=== PATIENT | male | born 1935 | race Caucasian/White ===

== ENCOUNTER 2017-05-26 20:15 | Inpatient (IN) | payer OTHER, MEDICARE ==
[2017-05-26 21:37] VITALS: BP 200/93; PULSE 73; RESP 17; O2SAT 96
[2017-05-26 21:53] LABS: AUTOMATED NEUTROPHIL # 5.4 TH/MM3 (1.8-7.7); BASOPHIL # 0.1 TH/MM3 (0-0.2); BASOPHIL % 1.4 % (0.0-2.0); EOSINOPHIL # 0.3 TH/MM3 (0-0.4); EOSINOPHIL % 3.7 % (0.0-4.0); HEMATOCRIT 48.7 % (39.0-51.0); HEMO FLAGS DIFF FINAL; LYMPH % 14.5 % (9.0-44.0); LYMPHOCYTE # 1.1 TH/MM3 (1.0-4.8); MEAN CELL VOLUME 96.5 FL (80.0-100.0); MEAN CORPUSCULAR HEMOGLOBIN 32.4 PG (27.0-34.0); MEAN CORPUSCULAR HGB CONC 33.6 % (32.0-36.0); MONO % 11.4 % (0.0-8.0); PLATELET COUNT 159 TH/MM3 (150-450); RED BLOOD COUNT 5.05 MIL/MM3 (4.50-5.90); RED CELL DISTRIBUTION WIDTH 14.2 % (11.6-17.2); WHITE BLOOD COUNT 7.8 TH/MM3 (4.0-11.0)
[2017-05-26 21:57] LABS: BLOOD, URINE TRACE (NEG); COMMENT (UR) CULT NOT INDICATED; CULTURE IF INDICATED CULT NOT INDICATED; GLUCOSE,URINE NEG (NEG); KETONE, URINE TRACE mg/dL (NEG); MUCUS URINE FEW /lpf (OCC); NITRITE,URINE NEG (NEG); PH, URINE 6.5 (5.0-8.5); SQUAMOUS EPITHELIAL CELL URINE <1 /hpf (0-5); URINE COLOR YELLOW (YELLW/STRAW)
[2017-05-26 21:59] VITALS: BP 203/104; PULSE 75; RESP 17; TEMP 98.3; O2SAT 96
[2017-05-26] MEDS ORDERED: OMEGCAP PO (22:05)
[2017-05-26] MEDS ORDERED: ISOS30TA3 PO (22:05)
[2017-05-26] MEDS ORDERED: GABA300C5 PO ×2 (22:05→22:12)
[2017-05-26] MEDS ORDERED: SIMV40TA PO (22:05)
[2017-05-26] MEDS ORDERED: ASPI-516 CHEW (22:05)
[2017-05-26] MEDS ORDERED: MELO15TA20 PO (22:05)
[2017-05-26] MEDS ORDERED: OMEP40CA2 PO (22:05)
[2017-05-26] MEDS ORDERED: FLUT55AE INH (22:05)
[2017-05-26] MEDS ORDERED: LISI20TA PO (22:05)
[2017-05-26] MEDS ORDERED: CLAR10CA3 PO (22:05)
[2017-05-26] MEDS ORDERED: DONE10TA7 PO (22:05)
[2017-05-26] MEDS ORDERED: CARV6.252 PO (22:05)
[2017-05-26 22:14] LABS: ALT (GPT) 63 U/L (12-78)
[2017-05-26 22:17] LABS: ANION GAP 5 MEQ/L (5-15); AST (GOT) 45 U/L (15-37); BLOOD UREA NITROGEN 36 MG/DL (7-18); CHLORIDE 101 MEQ/L (98-107); GLOMERULAR FILTRATION RATE 43 ML/MIN (>89); POTASSIUM 3.9 MEQ/L (3.5-5.1); SODIUM (NA) 135 MEQ/L (136-145)
[2017-05-26 22:18] LABS: ALCOHOL LESS THAN 3 MG/DL (0-5)
--- NOTE | 2017-05-26 22:18 | PD ---
HPI Chief Complaint: Psychiatric Symptoms Time Seen by Provider: 20:36 Travel History International Travel<30 days: No Contact w/Intl Traveler<30days: No History of Present Illness HPI 82 yo M arrives as a bella act. pt has hx dementia. pt has become increasingly verbally and physically aggressive toward at home. aricept prescribed by pmd has not helped. pt has no medical complaints at the time of er arrival. location neuropsych. timing constant. severity moderate. PFSH Past Medical History High Cholesterol: Yes Coronary Artery Disease: Yes Dementia: Yes Diabetes: No Patient Takes Glucophage: No Diminished Hearing: Yes Hypertension: Yes Myocardial Infarction: Yes Tetanus Vaccination: Unknown Past Surgical History Cardiac Surgery: Yes (TRIPLE BYPASS) Coronary Artery Bypass Graft: Yes Family History Family Myocardial Infarction: Yes Social History Alcohol Use: No Tobacco Use: No Substance Use: No Allergies-Medications (Allergen,Severity, Reaction): Coded Allergies: No Known Allergies (Unverified , 05/26/17) Reported Meds & Prescriptions Reported Meds & Active Scripts Active Reported Gabapentin 300 Mg Cap 300 Mg PO TID Lisinopril-Hctz 20-12.5 mg Tab (Lisinopril/Hydrochlorothiazide) 20 Mg-12.5 Mg Tablet PO DAILY [place]-3 Fish Oil/Vitamin (Fish Oil-Cholecalciferol) 1,000-1,000 Mg Cap 1 Cap PO DAILY Simvastatin 40 Mg Tab 40 Mg PO HS [place] Respiclick Inh (Fluticasone Propionate) 55 Mcg/Actuation Aer.pow.ba 50 Mcg INH BID Carvedilol 6.25 Mg Tab 6.25 Mg PO BID Omeprazole 40 Mg Cap 40 Mg PO DAILY Claritin (Loratadine) 10 Mg Cap 10 Mg PO DAILY Meloxicam 15 Mg Tab 15 Mg PO DAILY Isosorbide Mononitrate ER (Isosorbide Mononitrate) 30 Mg Thiago 30 Mg PO DAILY Donepezil 10 Mg Tab 10 Mg PO HS Aspirin 81 Mg Chew 81 Mg CHEW DAILY Review of Systems Except as stated in HPI: all other systems reviewed are Neg General / Constitutional: No: Fever Physical Exam Narrative GENERAL: 82 yo male, speaking sentences, no acute distress SKIN: Warm and dry. HEAD: Atraumatic. Normocephalic. EYES: Pupils equal and round. No scleral icterus. No injection or drainage. ENT: No nasal bleeding or discharge. Mucous membranes pink and moist. NECK: Trachea midline. No JVD. CARDIOVASCULAR: Regular rate and rhythm. RESPIRATORY: No accessory muscle use. Clear to auscultation. Breath sounds equal bilaterally. GASTROINTESTINAL: Abdomen soft, non-tender, nondistended. Hepatic and splenic margins not palpable. MUSCULOSKELETAL: Extremities without clubbing, cyanosis, or edema. No obvious deformities. NEUROLOGICAL: Speech, memory and mentation are normal. Pt ambulatory with normal gait. No focal CN deficit. PSYCHIATRIC: Appropriate mood and affect; insight and judgment normal. Data Data Last Documented VS Vital Signs Date Time Temp Pulse Resp B/P (MAP) Pulse Ox O2 Delivery O2 Flow Rate FiO2 05/26/17 23:58 74 194/93 05/26/17 23:56 19 95 Room Air 05/26/17 21:59 98.3 Orders Orders Complete Blood Count With Diff (05/26/17 21:10) Comprehensive Metabolic Panel (05/26/17 21:10) Thyroid Stimulating Hormone (05/26/17 21:10) Urinalysis - C+S If Indicated (05/26/17 21:10) Psych Screen (05/26/17 21:10) Drug Screen, Random Urine (05/26/17 21:10) Alcohol (Ethanol) (05/26/17 21:10) Electrocardiogram (05/26/17 22:22) Ckmb (Isoenzyme) Profile (05/26/17 22:22) Prothrombin Time / Inr (Pt) (05/26/17 22:22) Act Partial Throm Time (Ptt) (05/26/17 22:22) Troponin I (05/26/17 22:22) Chest, Single Ap (05/26/17 22:22) ^ Medication Alert (05/26/17 23:02) ^ Discontinue (05/26/17 23:02) Dextrose 5% In [place]ate... W/Amiodarone Inj (05/26/17 23:12) Vital Signs (Adult) KENZIE.Q4H (05/26/17 23:02) CKMB (05/26/17 21:15) CKMB% (05/26/17 21:15) Consult Cardiology (05/26/17 ) Admit To Inpatient (05/26/17 ) Vital Signs (Adult) Q4H (05/26/17 23:57) Activity Oob With Assistance (05/26/17 23:57) Commercial Real Estate Assistant / Telemetry .CONTINUOUS (05/26/17 23:57) Intake + Output KENZIE.QSHIFT (05/26/17 23:57) Sodium Chlor 0.9% 1000 Ml Inj (Ns 1000 M (05/26/17 23:57) Sodium Chloride 0.9% Flush (Ns Flush) (05/27/17 00:00) Sodium Chloride 0.9% Flush (Ns Flush) (05/27/17 09:00) Ondansetron Inj (Zofran Inj) (05/27/17 00:00) Comprehensive Metabolic Panel (05/27/17 10:00) Complete Blood Count With Diff (05/27/17 10:00) Troponin I (05/27/17 04:00) Troponin I (05/27/17 10:00) Scd Bilateral/Knee High KENZIE.BID (05/26/17 23:57) Maverick Bilateral/Knee High KENZIE.QSHIFT (05/26/17 23:59) Acetaminophen (Tylenol) (05/27/17 00:00) Docusate Sodium-Senna (Edith-Colace) (05/27/17 09:00) Magnesium Hydroxide Liq (Milk Of Magnesi (05/27/17 00:00) Sennosides (Senokot) (05/27/17 00:00) Bisacodyl Supp (Dulcolax Supp) (05/27/17 00:00) Lactulose Liq (Lactulose Liq) (05/27/17 00:00) Inpatient Certification (05/26/17 ) Consult Psychiatry (05/26/17 ) (Hub Use Only)In Phy Cons/Ref (05/27/17 ) [facility]05/[facility]/17 ) Admit Order (Ed Use Only) (05/27/17 ) Commercial Real [employer] Assistant / Telemetry KENZIE.Q8H (05/27/17 00:08) Vital Signs (Adult) Q4H (05/27/17 00:08) Diet Heart Healthy (05/27/17 Breakfast) Activity Oob With Assistance (05/27/17 00:08) Labs Laboratory Tests Test 05/26/17 21:15 05/26/17 21:20 05/26/17 21:26 05/26/17 22:30 White Blood Count 7.8 TH/MM3 Red Blood Count 5.05 MIL/MM3 Hemoglobin 16.4 GM/DL Hematocrit 48.7 % Mean Corpuscular Volume 96.5 FL Mean Corpuscular Hemoglobin 32.4 PG Mean Corpuscular Hemoglobin Concent 33.6 % Red Cell Distribution Width 14.2 % Platelet Count 159 TH/MM3 Mean Platelet Volume 9.7 FL Neutrophils (%) (Auto) 69.0 % Lymphocytes (%) (Auto) 14.5 % Monocytes (%) (Auto) 11.4 % Eosinophils (%) (Auto) 3.7 % Basophils (%) (Auto) 1.4 % Neutrophils # (Auto) 5.4 TH/MM3 Lymphocytes # (Auto) 1.1 TH/MM3 Monocytes # (Auto) 0.9 TH/MM3 Eosinophils # (Auto) 0.3 TH/MM3 Basophils # (Auto) 0.1 TH/MM3 CBC Comment DIFF FINAL Differential Comment Blood Urea Nitrogen 36 MG/DL Creatinine 1.57 MG/DL Random Glucose 91 MG/DL Total Protein 8.5 GM/DL Albumin 3.8 GM/DL Calcium Level 9.1 MG/DL Alkaline Phosphatase 81 U/L Aspartate Amino Transf (AST/SGOT) 45 U/L Alanine Aminotransferase (ALT/SGPT) 63 U/L Total Bilirubin 0.7 MG/DL Sodium Level 135 MEQ/L Potassium Level 3.9 MEQ/L Chloride Level 101 MEQ/L Carbon Dioxide Level 29.0 MEQ/L Anion Gap 5 MEQ/L Estimat Glomerular Filtration Rate 43 ML/MIN Total Creatine Kinase 256 U/L Creatine Kinase MB 5.0 NG/ML Troponin I LESS THAN 0.02 NG/ML Thyroid Stimulating Hormone 3rd Gen 2.310 uIU/ML Ethyl Alcohol Level LESS THAN 3 MG/DL Urine Opiates Screen NEG Urine Barbiturates Screen NEG Urine Amphetamines Screen NEG Urine Benzodiazepines Screen NEG Urine Cocaine Screen NEG Urine Cannabinoids Screen NEG Urine Color YELLOW Urine Turbidity CLEAR Urine pH 6.5 Urine Specific [place] 1.025 Urine Protein 100 mg/dL Urine Glucose (UA) NEG mg/dL Urine Ketones TRACE mg/dL Urine Occult Blood TRACE Urine Nitrite NEG Urine Bilirubin NEG Urine Urobilinogen LESS THAN 2.0 MG/DL Urine Leukocyte Esterase NEG Urine RBC LESS THAN 1 /hpf Urine Squamous Epithelial Cells <1 /hpf Urine Mucus FEW /lpf Microscopic Urinalysis Comment CULT NOT INDICATED Prothrombin Time 11.7 SEC Prothromb Time International Ratio 1.1 RATIO Activated Partial Thromboplast Time 32.0 SEC MDM Medical Decision Making Medical Screen Exam Complete: Yes Emergency Medical Condition: Yes Medical Record Reviewed: Yes Differential Diagnosis Altered mental status/psychosis due to infection/environmental exposure/ metabolic abnormality, polypharmacy, alcohol abuse/intoxication, illicit or prescribed drug abuse, malingering/secondary gain, non-organic psychiatric disease Narrative Course At approximately 2220 the patient returned from using the bathroom to urinate and upon reconnecting the monitor he had a run of ventricular tachycardia about 11 beats in a row. He didn't describe chest pain at the time. EKG performed reveals sinus rhythm of 74 with a intraventricular conduction delay and the parents concerning for potential left bundle branch block. CBC & BMP Diagram 05/26/17 21:15 Total Protein 8.5 H, Albumin 3.8, Calcium Level 9.1, Alkaline Phosphatase 81, Aspartate Amino Transf (AST/SGOT) 45 H, Alanine Aminotransferase (ALT/SGPT) 63, Total Bilirubin 0.7 CXR: Bibasilar disease No cough. No fever. PNA considered less likely. Amio gtt started d/w Dr Waite for [facility] CICU placement Critical Care Narrative Aggregate critical care time was 35 minutes. Time to perform other separately billable procedures was not included in the critical care time. My time did not include minutes spent treating any other patients simultaneously or on activities that did not directly contribute to the patient's treatment. The services I provided to this patient were to treat and/or prevent clinically significant deterioration that could result in: Cardiopulmonary arrest, permanent disability I provided critical care services requiring my management, as noted below: Chart data review, documentation time, medication orders and management, vital sign assessments/reviewing monitor data, ordering and reviewing lab tests, ordering and interpreting/reviewing x-rays and diagnostic studies, care of the patient and discussion of the patient with the admitting physicians. Diagnosis Primary Impression: V tach Additional Impression: Dementia with aggressive behavior Admitting Information Admitting Physician Requests: James Cotto MD May 26, 2017 22:18
[2017-05-26 22:24] LABS: ALKALINE PHOSPHATASE 81 U/L (45-117); TOTAL BILIRUBIN ADULT 0.7 MG/DL (0.2-1.0)
[2017-05-26 22:40] VITALS: BP 194/91; PULSE 68; RESP 19; O2SAT 95
[2017-05-26 22:47] VITALS: BP 191/92; PULSE 66; RESP 19; O2SAT 95
--- NOTE | 2017-05-26 22:47 | RADRPT ---
EXAM DATE/TIME: 05/26/2017 22:30 [place] COMPARISON: No previous studies available for comparison. INDICATIONS : Shortness of breath. Psych eval. MEDICAL HISTORY : None. SURGICAL HISTORY : CABG. ENCOUNTER: Initial ACUITY: 1 day PAIN SCORE: 0/10 LOCATION: Bilateral chest FINDINGS: A single view of the chest demonstrates mild basilar airspace disease. Probable trace pleural fluid. Heart size within normal limits. CONCLUSION: 1. Mild basilar airspace disease with trace pleural fluid. Evan Still MD on May 26, 2017 at 22:40 Board Certified Radiologist. This report was verified electronically.
[2017-05-26 23:06] LABS: INTERNATIONAL NORMALIZED RATIO 1.1 RATIO; PROTHROMBIN TIME - PATIENT 11.7 SEC (9.8-11.6)
[2017-05-26 23:18] LABS: CREATINE KINASE 256 U/L (39-308)
[2017-05-26 23:31] VITALS: BP 187/98; PULSE 74; RESP 19; O2SAT 96
[2017-05-26 23:56] VITALS: BP 194/93; PULSE 75; RESP 19; O2SAT 95
--- NOTE | 2017-05-26 23:57 | HHI.HP ---
HPI Service [facility] Primary Care Physician Unknown Admission Diagnosis Diagnoses: (1) V tach Diagnosis: Principal (2) Dementia with aggressive behavior Diagnosis: Principal (3) Renal insufficiency Diagnosis: Principal (4) HTN (hypertension) Diagnosis: Principal Travel History International Travel<30 Days: No Contact w/Intl Traveler <30 Da: No History of Present Illness This is an 82-year-old male with PMH of HTN, Hyperlipidemia, CAD and Dementia was brought to the ER by Police under Veneg[place] Act being physically aggressive towards . Per , pt w/ worsening mental state in the last 3wks, tonight became aggressive. On arrival, BP 203/104, HR 75, O2 sat 96% on RA, Afebrile. CBC essentially unremarkable. Creatinine 1.57, no previous labs for comparison. Troponin negative. UA negative. Urine Drug Screen negative. Alcohol negative. CXR mild basilar airspace disease and trace pleural fluid. While in ER, patient noted to have an 11 beat run of V. tach, started on Amiodarone gtt. Pt currently without complaints. No chest pain, no SOB. Review of Systems Except as stated in HPI: all other systems reviewed are Neg ROS: 14 point review of systems otherwise negative. Past Family Social History Past Medical History PMH: HTN, Hyperlipidemia, CAD and Dementia Past Surgical History PAST SURGICAL HISTORY: CABG Allergies: Coded Allergies: No Known Allergies (Unverified , 05/26/17) Family History PAST FAMILY HISTORY: Reviewed, positive for CAD. Social History PAST SOCIAL HISTORY: Negative for alcohol, tobacco or drugs. Physical Exam Vital Signs Vital Signs Date Time Temp Pulse Resp B/P (MAP) Pulse Ox O2 Delivery O2 Flow Rate FiO2 05/26/17 23:56 75 19 194/93 (126) 95 Room Air 05/26/17 23:31 74 19 187/98 (127) 96 Room Air 05/26/17 22:47 66 19 191/92 (125) 95 Room Air 05/26/17 22:40 68 19 194/91 (125) 95 Room Air 05/26/17 21:59 98.3 75 17 203/104 (137) 96 Room Air 05/26/17 21:37 73 17 200/93 (128) 96 Room Air Physical Exam PE: GENERAL: Pleasantly demented elderly white male in no acute distress, calm at this time. HEENT: PERRLA, EOMI. No scleral icterus or conjunctival pallor. No lid lag or facial droop. CARDIOVASCULAR: Regular rate and rhythm. No obvious murmurs to auscultation. No chest tenderness to palpation. RESPIRATORY: No obvious rhonchi or wheezing. Clear to auscultation. Breath sounds equal bilaterally. GASTROINTESTINAL: Abdomen soft, non-tender, nondistended. BS normal. MUSCULOSKELETAL: Extremities without clubbing, cyanosis, or edema. No obvious deformities. NEUROLOGICAL: Awake, alert. No focal neurologic deficits. Moving both upper and lower extremities spontaneously. Laboratory Laboratory Tests Test 05/26/17 21:15 05/26/17 21:20 05/26/17 21:26 05/26/17 22:30 White Blood Count 7.8 Red Blood Count 5.05 Hemoglobin 16.4 Hematocrit 48.7 Mean Corpuscular Volume 96.5 Mean Corpuscular Hemoglobin 32.4 Mean Corpuscular Hemoglobin Concent 33.6 Red Cell Distribution Width 14.2 Platelet Count 159 Mean Platelet Volume 9.7 Neutrophils (%) (Auto) 69.0 Lymphocytes (%) (Auto) 14.5 Monocytes (%) (Auto) 11.4 Eosinophils (%) (Auto) 3.7 Basophils (%) (Auto) 1.4 Neutrophils # (Auto) 5.4 Lymphocytes # (Auto) 1.1 Monocytes # (Auto) 0.9 Eosinophils # (Auto) 0.3 Basophils # (Auto) 0.1 CBC Comment DIFF FINAL Differential Comment Blood Urea Nitrogen 36 Creatinine 1.57 Random Glucose 91 Total Protein 8.5 Albumin 3.8 Calcium Level 9.1 Alkaline Phosphatase 81 Aspartate Amino Transf (AST/SGOT) 45 Alanine Aminotransferase (ALT/SGPT) 63 Total Bilirubin 0.7 Sodium Level 135 Potassium Level 3.9 Chloride Level 101 Carbon Dioxide Level 29.0 Anion Gap 5 Estimat Glomerular Filtration Rate 43 Total Creatine Kinase 256 Creatine Kinase MB 5.0 Troponin I LESS THAN 0.02 Thyroid Stimulating Hormone 3rd Gen 2.310 Ethyl Alcohol Level LESS THAN 3 Urine Opiates Screen NEG Urine Barbiturates Screen NEG Urine Amphetamines Screen NEG Urine Benzodiazepines Screen NEG Urine Cocaine Screen NEG Urine Cannabinoids Screen NEG Urine Color YELLOW Urine Turbidity CLEAR Urine pH 6.5 Urine Specific [place] 1.025 Urine Protein 100 Urine Glucose (UA) NEG Urine Ketones TRACE Urine Occult Blood TRACE Urine Nitrite NEG Urine Bilirubin NEG Urine Urobilinogen LESS THAN 2.0 Urine Leukocyte Esterase NEG Urine RBC LESS THAN 1 Urine Squamous Epithelial Cells <1 Urine Mucus FEW Microscopic Urinalysis Comment CULT NOT INDICATED Prothrombin Time 11.7 Prothromb Time International Ratio 1.1 Activated Partial Thromboplast Time 32.0 Result Diagram: 05/26/17211405/26/172114 Caprini VTE Risk Assessment Caprini VTE Risk Assessment: Mod/High Risk (score >= 2) Caprini Risk Assessment Model Point Value = 1 Point Value = 2 Point Value = 3 Point Value = 5 Age 41-60 Minor surgery BMI > 25 kg/m2 Swollen legs Varicose veins or History of unexplained or recurrent spontaneous Oral contraceptives or hormone replacement Sepsis (< 1 month) Serious lung disease, including pneumonia (< 1 month) Abnormal pulmonary function Acute myocardial infarction Congestive heart failure (< 1 month) History of inflammatory bowel disease Medical patient at bed rest Age 61-74 Arthroscopic surgery Major open surgery (> 45 min) Laparoscopic surgery (> 45 min) Malignancy Confined to bed (> 72 hours) Immobilizing plaster cast Central venous access Age >= 75 History of VTE Family history of VTE Factor V Leiden Prothrombin [id number] Lupus anticoagulant Anticardiolipin antibodies Elevated serum homocysteine Heparin-induced thrombocytopenia Other congenital or acquired thrombophilia Stroke (< 1 month) Elective arthroplasty Hip, pelvis, or leg fracture Acute spinal cord injury (< 1 month) Prophylaxis Regimen Total Risk Factor Score Risk Level Prophylaxis Regimen 0-1 Low Early ambulation 2 Moderate Order ONE of the following: *Sequential Compression Device (SCD) *Heparin 5000 units SQ BID 3-4 Higher Order ONE of the following medications: *Heparin 5000 units SQ TID *Enoxaparin/Lovenox 40 mg SQ daily (WT < 150 kg, CrCl > 30 mL/min) *Enoxaparin/Lovenox 30 mg SQ daily (WT < 150 kg, CrCl > 10-29 mL/min) *Enoxaparin/Lovenox 30 mg SQ BID (WT < 150 kg, CrCl > 30 mL/min) AND/OR *Sequential Compression Device (SCD) 5 or more Highest Order ONE of the following medications: *Heparin 5000 units SQ TID (Preferred with Epidurals) *Enoxaparin/Lovenox 40 mg SQ daily (WT < 150 kg, CrCl > 30 mL/min) *Enoxaparin/Lovenox 30 mg SQ daily (WT < 150 kg, CrCl > 10-29 mL/min) *Enoxaparin/Lovenox 30 mg SQ BID (WT < 150 kg, CrCl > 30 mL/min) AND *Sequential Compression Device (SCD) Assessment and Plan Problem List: (1) V tach ICD Code: I47.2 - Ventricular tachycardia Status: Acute (2) Dementia with aggressive behavior ICD Code: F03.91 - Unspecified dementia with behavioral disturbance Status: Acute (3) Renal insufficiency ICD Code: N28.9 - Disorder of kidney and ureter, unspecified (4) HTN (hypertension) ICD Code: I10 - Essential (primary) hypertension Assessment and Plan A/P: 1. Vtach: 11 beat run of Vtach in ER, asymptomatic. Started on Amiodarone gtt in ER, will continue. Chest pain free. Initial trop negative. Check serial cardiac enzymes, Echo, Consult Cardiology. 2. Dementia: w/ Aggressive Behavior, brought in by Police under Ven[place] Act for being physically aggressive to . Consult Psych. 3. Renal Insufficiency: Creatinine 1.57, no previous labs for comparison. IVF for hydration, repeat labs in am. 4. HTN: BP uncontrolled, 203/104, HR 75 on arrival, currently 194/93, HR 75. Continue Amio gtt, monitor BP. 5. DVT Prophylaxis: Heparin sq 6. Social work for d/c planning as needed. 7. Case discussed w/ ER physician at length. Physician Certification 2 Midnight Certification Type: Admission for Inpatient Services Order for Inpatient Services The services are ordered in accordance with Medicare regulations or non- Medicare payer requirements, as applicable. In the case of services not specified as inpatient-only, they are appropriately provided as inpatient services in accordance with the 2-midnight benchmark. Estimated LOS (days): 2 days is the estimated time the patient will need to remain in the hospital, assuming treatment plan goals are met and no additional complications. Post-Hospital Plan: Not yet determined Mikki Waite MD May 26, 2017 23:57
[2017-05-26] MEDS: AMIODARONE INJ 450 MG in DEXTROSE 5% IN WATE(EXCEL) INJ 241 ML IV PRN ×2 (23:58)
[2017-05-27] VITALS (35 sets, daily range): BP systolic 136–210; BP diastolic 71–104; PULSE 61–90; RESP 16–20; TEMP 97.9–98.1; O2SAT 93–96
[2017-05-27] MEDS ORDERED: SODIUM CHLORIDE 0.9% FLUSH 10 ML FLUSH IV FLUSH PRN
[2017-05-27] MEDS ORDERED: ONDANSETRON HCL 4 MG/2 ML VIAL IVP PRN
[2017-05-27] MEDS ORDERED: MAGNESIUM HYDROXIDE SUSP 30 ML CUP PO PRN
[2017-05-27] MEDS ORDERED: ACETAMINOPHEN 325 MG TAB PO PRN
[2017-05-27] MEDS ORDERED: LACTULOSE SYRUP 20 GM/30 ML CUP PO PRN
[2017-05-27] MEDS ORDERED: BISACODYL 10 MG SUPP RECTAL PRN
[2017-05-27] MEDS ORDERED: SENNOSIDES 8.6 MG TAB PO PRN
[2017-05-27] MEDS: SODIUM CHLOR 0.9% 1000 ML INJ 1,000 ML IV SCH ×3 (00:41→20:13)
[2017-05-27] MEDS ORDERED: hydrALAZINE HCL 20 MG/ML VIAL IV PUSH ONE (04:00)
[2017-05-27] MEDS ORDERED: METOPROLOL TARTRATE 25 MG TAB PO ONE (05:15)
[2017-05-27] MEDS: AMIODARONE INJ 450 MG in DEXTROSE 5% IN WATE(EXCEL) INJ 241 ML IV PRN ×2 (07:27)
--- NOTE | 2017-05-27 07:36 | HHI.PR ---
Subjective Remarks f/u; V-tach/ hypertension in no acute distress. denies sob or cough. has mild generalized body ache. BP tend noted. d/w the RN. Objective Vitals Vital Signs Date Time Temp Pulse Resp B/P (MAP) Pulse Ox O2 Delivery O2 Flow Rate FiO2 05/27/17 06:26 65 05/27/17 05:04 90 05/27/17 04:29 83 05/27/17 03:52 83 05/27/17 03:49 98.0 81 20 210/102 (138) 96 05/27/17 03:17 78 19 185/88 (120) 94 Room Air 05/27/17 03:15 81 19 204/104 (137) 94 Room Air 05/27/17 02:24 74 18 149/82 (104) 94 Room Air 05/27/17 02:14 69 17 153/84 (107) 94 Room Air 05/27/17 02:02 74 17 153/84 (107) 93 Room Air 05/27/17 01:22 69 17 160/84 (109) 95 Room Air 05/27/17 01:02 68 17 169/83 (111) 95 Room Air 05/27/17 00:59 68 17 180/91 (120) 95 Room Air 05/27/17 00:43 74 18 174/95 (121) 96 Room Air 05/27/17 00:10 70 18 180/95 (123) 96 Room Air 05/26/17 23:58 74 194/93 05/26/17 23:56 75 19 194/93 (126) 95 Room Air 05/26/17 23:31 74 19 187/98 (127) 96 Room Air 05/26/17 22:47 66 19 191/92 (125) 95 Room Air 05/26/17 22:40 68 19 194/91 (125) 95 Room Air 05/26/17 21:59 98.3 75 17 203/104 (137) 96 Room Air 05/26/17 21:37 73 17 200/93 (128) 96 Room Air Result Diagram: 05/26/17211405/26/172114 Objective Remarks GENERAL: This is a well-nourished, well-developed patient, in no apparent distress. CARDIOVASCULAR: Regular rate and regular rhythm without murmurs, gallops, or rubs. RESPIRATORY: Clear to auscultation. Breath sounds equal bilaterally. No wheezes , rales, or rhonchi. GASTROINTESTINAL: Abdomen soft, non-tender, nondistended. Normal, active bowel sounds MUSCULOSKELETAL: Extremities without clubbing, cyanosis, or edema. NEURO: Alert & Oriented x4 to person, place, time, situation. Moves all ext x4 Medications and IVs Current Medications Amiodarone HCl 450 mg/Dextrose 250 ml @ 33.33 mls/ hr Q7H31M PRN IV Per Protocol Last administered on 05/26/17 23:58; Start 05/26/17 at 23:12 Sodium Chloride 1,000 ml @ 100 mls/hr Q10H IV Last administered on 05/27/17 00:41; Start 05/26/17 at 23:57 Sodium Chloride (NS Flush) 2 ml UNSCH PRN IV FLUSH FLUSH AFTER USING IV ACCESS ; Start 05/27/17 at 00:00 Sodium Chloride (NS Flush) 2 ml BID IV FLUSH ; Start 05/27/17 at 09:00 Ondansetron HCl (Zofran Inj) 4 mg Q6H PRN IVP NAUSEA OR VOMITING; Start at 00:00 Acetaminophen (Tylenol) 650 mg Q6H PRN PO FEVER/PAIN SCALE 1 TO 2; Start 05/27 at 00:00 Senna/Docusate Sodium (Edith-Colace) 1 tab BID PO ; Start 05/27/17 at 09:00 Magnesium Hydroxide (Milk Of Magnesia Liq) 30 ml Q12H PRN PO Mild constipation ; Start 05/27/17 at 00:00 Sennosides (Senokot) 17.2 mg Q12H PRN PO Moderate constipation; Start at 00:00 Bisacodyl (Dulcolax Supp) 10 mg DAILY PRN RECTAL SEVERE CONSITIPATION; Start 05/27/17 at 00:00 Lactulose (Lactulose Liq) 30 ml DAILY PRN PO SEVERE CONSITIPATION; Start 05/27 at 00:00 Heparin Sodium (Porcine) (Heparin Inj) 5,000 units Q12HR SQ ; Start 05/27/17 at 09:00 Hydralazine HCl (Apresoline Inj) 10 mg ONCE ONCE IV PUSH Last administered on 05/27/17 04:03; Start 05/27/17 at 04:00; Stop 05/27/17 at 04:01; Status DC Metoprolol Tartrate (Lopressor) 25 mg ONCE ONCE PO Last administered on 05:26; Start 05/27/17 at 05:15; Stop 05/27/17 at 05:16; Status DC Aspirin (Aspirin Chew) 81 mg DAILY CHEW ; Start 05/27/17 at 09:00 Donepezil HCl (Aricept) 10 mg HS PO ; Start 05/27/17 at 21:00 Pantoprazole Sodium (Protonix) 40 mg DAILY PO ; Start 05/27/17 at 09:00 Pravastatin Sodium (Pravachol) 80 mg HS PO ; Start 05/27/17 at 21:00 A/P Problem List: (1) V tach ICD Code: I47.2 - Ventricular tachycardia Status: Acute (2) Dementia with aggressive behavior ICD Code: F03.91 - Unspecified dementia with behavioral disturbance Status: Acute (3) Renal insufficiency ICD Code: N28.9 - Disorder of kidney and ureter, unspecified (4) HTN (hypertension) ICD Code: I10 - Essential (primary) hypertension Assessment and Plan A/P 1. Vtach: 11 beat run of Vtach in ER, asymptomatic. Started on Amiodarone gtt in ER, will continue. resume Coreg- echo pending-cardiology consulted. 2. Dementia: w/ Aggressive Behavior, brought in by Police under Ven[place] Act for being physically aggressive to . Consulted Psych. 3. Renal Insufficiency: Creatinine 1.57, no previous labs for comparison. IVF for hydration, repeat labs today pending. 4. HTN: BP uncontrolled. Continue Amio gtt- resume Coreg-- vasotec prn- monitor BP. adjust the regimen as needed. 5. DVT Prophylaxis: Heparin sq Portillo Anguiano MD May 27, 2017 07:36
[2017-05-27] MEDS ORDERED: ENALAPRILAT 1.25 MG/ML VIAL IV PUSH PRN (07:45)
[2017-05-27] MEDS: ASPIRIN 81 MG CHEW TAB CHEW SCH (08:25)
[2017-05-27] MEDS: DOCUSATE SODIUM 50 MG/SENNA 8.6 MG TAB PO SCH ×2 (08:25→20:43)
[2017-05-27] MEDS: PANTOPRAZOLE SOD 40 MG DELAYED RELEASE TAB PO SCH (08:25)
[2017-05-27] MEDS: SODIUM CHLORIDE 0.9% FLUSH 10 ML FLUSH IV FLUSH SCH ×2 (08:26→20:45)
[2017-05-27] MEDS: HEPARIN SODIUM - SQ 10,000 UNITS/ML VIAL SQ SCH ×2 (08:26→20:43)
--- NOTE | 2017-05-27 08:33 | EKG ---
Date Performed: 05/26/2017 Time Performed: 22:28:07 PTAGE: 82 years EKG: Sinus rhythm WITH FIRST DEGREE AV BLOCK LEFT ATRIAL ENLARGEMENT LEFT BUNDLE BRANCH BLOCK ABNORMAL ECG NO PREVIOUS TRACING DOCTOR: Scooby Hewitt Interpretating Date/Time 05/27/2017 08:31:24
[2017-05-27] MEDS ORDERED: CARVEDILOL 6.25 MG TAB PO SCH (09:00)
--- NOTE | 2017-05-27 09:30 | PD.PSY.CON ---
Provisional Diagnosis Admission Date May 27, 2017 at 00:09 [place] I. Dementia with behavioral disturbance [place] II. Deferred [place] III. Hypertension, CAD, hyperlipidemia [place] IV. Aggressive behavior at home [place] V. 55 History of Present Illness Service Psychiatry Consult Requested By Medical team Reason for Consult Aggressive behavior Primary Care Physician Unknown HPI The patient is an 82-year-old man, domicile with his in [place], retired automotive electrician, , with documented psychiatric history of dementia, no previous psychiatric hospitalizations, no previous suicidal attempts, the patient is a Aricept 10 mg prescribed by PCP, patient has medical history of HTN , Hyperlipidemia, CAD, who was brought to the ER by Police under Venegas Act being physically aggressive towards his . Per , pt w/ worsening mental state in the last 3wks, but has became aggressive. On arrival in the ER, BP 203 /104, HR 75, O2 sat 96% on RA, Afebrile. CBC essentially unremarkable. Creatinine 1.57, no previous labs for comparison. Troponin negative. UA negative. Urine Drug Screen negative. Alcohol negative. CXR mild basilar airspace disease and trace pleural fluid. While in ER, patient noted to have an 11 beat run of V. tach, started on Amiodarone gtt. Pt currently without complaints. No chest pain, no SOB. He was consulted to psychiatry to adress aggressiveness and cognition impairment progression. On psychiatric evaluation today patient is found in his room, he is calm, cooperative, irritable at times. He is requesting breakfast "because I'm very hungry". Initially the patient was resistant and oppositional, stating that he is not crazy to see a psychiatrist. Patient was inquiring about the reason of being Venegas acted and consulted to psychiatry. He says that his is making false statements about him. He says that he is an aggressive person "because I am [place], and I have always been like that". Patient also states that he is a very smart automotive electrician "I am as smarter than any doctor here and you are not going to tel me what to do". He was receptive to verbal de-escalation and reassurance. Patient says that he was brought to the hospital "because I had a problem with my blood pressure". He does not seem to be insightful even aware of being under Venegas act are being aggressive with his . He reports frustrated mood , but he denies anhedonia, he denies hopelessness, helplessness, he denies sadness, denies any problem with appetite or concentration. He does report difficulty sleeping at night. He denies suicidal and homicidal ideation, he denies visual and auditory hallucinations. During this evaluation patient is mostly logical, coherent and relevant. No prominent paranoia, delusions, disorganized speech or behavior, delusions of reference, thought controlling are present. He does present evident memory deficits. Patient knows that he is in a hospital, but he doesn't know the name of the hospital or the city. Patient says that we are in [place] 2000. He doesn't know the name of the asbestos microscopist. Patient is able to repeat 3 words, but unable to recall them 5 minutes later. Even though the patient declined to continue the cooperation with cognitive assessment, there is no evidence of acute delirium, such of attention deficit, fluctuation of consciousness. During my assessment agitation or aggressive behavior were observed. I spoke with the nurse in charge who does not have any negative report about patient's behavior. I try to get collateral information from his , called her several times, but she did not fish bait picker the phone. The patient denies the use of illicit drugs and alcohol. Review of Systems Constitutional: DENIES: Diaphoretic episodes, Fatigue, Fever, Weight gain, Weight loss, Chills, Dizziness, Change in appetite, Night Sweats Endocrine: DENIES: Heat/cold intolerance, Polydipsia, Polyuria, Polyphagia Eyes: DENIES: Blurred vision, Diplopia, Eye inflammation, Eye pain, Vision loss , Photosensitivity, Double Vision Ears, nose, mouth, throat: DENIES: Tinnitus, Hearing loss, Vertigo, Nasal discharge, Oral lesions, Throat pain, Hoarseness, Ear Pain, Running Nose, Epistaxis, Sinus Pain, Toothache, Odynophagia Respiratory: DENIES: Apneas, Cough, Snoring, Wheezing, Hemoptysis, Sputum production, Shortness of breath Cardiovascular: DENIES: Chest pain, Palpitations, Syncope, Dyspnea on Exertion , PND, Lower Extremity Edema, Orthopnea, Claudication Gastrointestinal: DENIES: Abdominal pain, Black stools, Bloody stools, Constipation, Diarrhea, Nausea, Vomiting, Difficulty Swallowing, Anorexia Genitourinary: DENIES: Sexual dysfunction, Urinary frequency, Urinary incontinence, Urgency, Hematuria, Dysuria, Nocturia, Penile Discharge, Testicular Pain, Testicular Swelling Musculoskeletal: DENIES: Joint pain, Muscle aches, Stiffness, Joint Swelling, Back pain, Neck pain Integumentary: DENIES: Abnormal pigmentation, Nail changes, Pruritus, Rash Hematologic/lymphatic: DENIES: Bruising, Lymphadenopathy Immunologic/allergic: DENIES: Eczema, Urticaria Neurologic: DENIES: Abnormal gait, Headache, Localized weakness, Paresthesias, Seizures, Speech Problems, Tremor, Poor Balance Psychiatric: COMPLAINS OF: Confusion Past Family Social History Coded Allergies: No Known Allergies (Unverified , 05/26/17) Reported Medications Gabapentin (Gabapentin) 300 Mg Cap, 300 MG PO TID, #90 CAP 0 Refills 05/26/17 Lisinopril/Hydrochlorothiazide (Lisinopril-Hctz 20-12.5 mg Tab) 20 Mg-12.5 Mg Tablet, PO DAILY 05/26/17 Fish Oil-Cholecalciferol ([place]-3 Fish Oil/Vitamin) 1,000-1,000 Mg Cap, 1 CAP PO DAILY for Nutritional Supplement, CAP 0 Refills 05/26/17 Simvastatin (Simvastatin) 40 Mg Tab, 40 MG PO HS for Cholesterol Management, # 30 TAB 0 Refills 05/26/17 Fluticasone Propionate Inh ([place]onair Respiclick Inh) 55 Mcg/Actuation Aer.pow.ba , 50 MCG INH BID for Asthma Management, INH 0 Refills 05/26/17 Carvedilol (Carvedilol) 6.25 Mg Tab, 6.25 MG PO BID, #60 TAB 0 Refills 05/26/17 Omeprazole (Omeprazole) 40 Mg Cap, 40 MG PO DAILY, #30 CAP 0 Refills 05/26/17 Loratadine (Claritin) 10 Mg Cap, 10 MG PO DAILY for Allergy Management, CAP 0 Refills 05/26/17 Meloxicam (Meloxicam) 15 Mg Tab, 15 MG PO DAILY for Arthritis Pain, #30 TAB 0 Refills 05/26/17 Isosorbide Mononitrate ER (Isosorbide Mononitrate ER) 30 Mg Thiago, 30 MG PO DAILY for Prevent Chest Pain, #30 TAB 0 Refills 05/26/17 Donepezil (Donepezil) 10 Mg Tab, 10 MG PO HS for Dementia, #30 TAB 0 Refills 05/26/17 Aspirin (Aspirin) 81 Mg Chew, 81 MG CHEW DAILY, TAB 0 Refills 05/26/17 Discontinued Reported Medications Gabapentin (Gabapentin) 300 Mg Cap, 300 MG PO TID, #90 CAP 0 Refills 05/26/17 Current Medications Medications (Trade) Dose Ordered Sig/Nohelia Route Start Time Stop Time Status Last Admin Amiodarone HCl 450 mg/Dextrose 250 ml @ 33.33 mls/ hr Q7H31M PRN IV 05/26/17 23:12 05/27/17 07:27 Sodium Chloride 1,000 ml @ 100 mls/hr Q10H IV 05/26/17 23:57 05/27/17 00:41 (NS Flush) 2 ml UNSCH PRN IV FLUSH 05/27/17 00:00 (NS Flush) 2 ml BID IV FLUSH 05/27/17 09:00 05/27/17 08:26 (Zofran Inj) 4 mg Q6H PRN IVP 05/27/17 00:00 (Tylenol) 650 mg Q6H PRN PO 05/27/17 00:00 (Edith-Colace) 1 tab BID PO 05/27/17 09:00 05/27/17 08:25 (Milk Of Magnesia Liq) 30 ml Q12H PRN PO 05/27/17 00:00 (Senokot) 17.2 mg Q12H PRN PO 05/27/17 00:00 (Dulcolax Supp) 10 mg DAILY PRN RECTAL 05/27/17 00:00 (Lactulose Liq) 30 ml DAILY PRN PO 05/27/17 00:00 (Heparin Inj) 5,000 units Q12HR SQ 05/27/17 09:00 05/27/17 08:26 (Aspirin Chew) 81 mg DAILY CHEW 05/27/17 09:00 05/27/17 08:25 (Aricept) 10 mg HS PO 05/27/17 21:00 (Protonix) 40 mg DAILY PO 05/27/17 09:00 05/27/17 08:25 (Pravachol) 80 mg HS PO 05/27/17 21:00 (Vasotec Inj) 1.25 mg Q8H PRN IV PUSH 05/27/17 07:45 (Coreg) 6.25 mg BID PO 05/27/17 09:00 05/27/17 08:25 Family Psych History He denies family psychiatric history Social History Patient was born and raised in [place], he is domiciled in [place] with his , he is retired, he used to be an automotive electrician, his highest level of education is high school, he is also [place]. Patient's Strengths (min. 2) No previous psychiatric history Physical Exam No psychomotor agitation or retardation, no EPS, no tremors, no stiffness, no withdrawal symptoms present Vital Signs Vital Signs Date Time Temp Pulse Resp B/P (MAP) Pulse Ox O2 Delivery O2 Flow Rate FiO2 05/27/17 08:00 66 05/27/17 07:27 169/84 05/27/17 07:00 98.0 18 95 05/27/17 03:17 Room Air Lab Results Test 05/26/17 21:15 05/26/17 21:20 05/26/17 21:26 05/26/17 22:30 White Blood Count 7.8 TH/MM3 Red Blood Count 5.05 MIL/MM3 Hemoglobin 16.4 GM/DL Hematocrit 48.7 % Mean Corpuscular Volume 96.5 FL Mean Corpuscular Hemoglobin 32.4 PG Mean Corpuscular Hemoglobin Concent 33.6 % Red Cell Distribution Width 14.2 % Platelet Count 159 TH/MM3 Mean Platelet Volume 9.7 FL Neutrophils (%) (Auto) 69.0 % Lymphocytes (%) (Auto) 14.5 % Monocytes (%) (Auto) 11.4 % Eosinophils (%) (Auto) 3.7 % Basophils (%) (Auto) 1.4 % Neutrophils # (Auto) 5.4 TH/MM3 Lymphocytes # (Auto) 1.1 TH/MM3 Monocytes # (Auto) 0.9 TH/MM3 Eosinophils # (Auto) 0.3 TH/MM3 Basophils # (Auto) 0.1 TH/MM3 CBC Comment DIFF FINAL Differential Comment Blood Urea Nitrogen 36 MG/DL Creatinine 1.57 MG/DL Random Glucose 91 MG/DL Total Protein 8.5 GM/DL Albumin 3.8 GM/DL Calcium Level 9.1 MG/DL Alkaline Phosphatase 81 U/L Aspartate Amino Transf (AST/SGOT) 45 U/L Alanine Aminotransferase (ALT/SGPT) 63 U/L Total Bilirubin 0.7 MG/DL Sodium Level 135 MEQ/L Potassium Level 3.9 MEQ/L Chloride Level 101 MEQ/L Carbon Dioxide Level 29.0 MEQ/L Anion Gap 5 MEQ/L Estimat Glomerular Filtration Rate 43 ML/MIN Total Creatine Kinase 256 U/L Creatine Kinase MB 5.0 NG/ML Troponin I LESS THAN 0.02 NG/ML Thyroid Stimulating Hormone 3rd Gen 2.310 uIU/ML Ethyl Alcohol Level LESS THAN 3 MG/DL Urine Opiates Screen NEG Urine Barbiturates Screen NEG Urine Amphetamines Screen NEG Urine Benzodiazepines Screen NEG Urine Cocaine Screen NEG Urine Cannabinoids Screen NEG Urine Color YELLOW Urine Turbidity CLEAR Urine pH 6.5 Urine Specific [place] 1.025 Urine Protein 100 mg/dL Urine Glucose (UA) NEG mg/dL Urine Ketones TRACE mg/dL Urine Occult Blood TRACE Urine Nitrite NEG Urine Bilirubin NEG Urine Urobilinogen LESS THAN 2.0 MG/DL Urine Leukocyte Esterase NEG Urine RBC LESS THAN 1 /hpf Urine Squamous Epithelial Cells <1 /hpf Urine Mucus FEW /lpf Microscopic Urinalysis Comment CULT NOT INDICATED Prothrombin Time 11.7 SEC Prothromb Time International Ratio 1.1 RATIO Activated Partial Thromboplast Time 32.0 SEC Test 05/27/17 01:35 Troponin I LESS THAN 0.02 NG/ML Mental Status Examination Appearance: Appropriate Consciousness: Alert Orientation: Person, Place (partially) Motor Activity: Normal gait Speech: Unremarkable Language: Adequate Fund of Knowledge: Adequate Attention and Concentration: Adequate Memory: Impaired Mood: Appropriate, Oppositional, Irritable Affect: Irritable Thought Process & Associations: Intact Thought Content: Appropriate Hallucination Type: None Delusion Type: None Suicidal Ideation: No Suicidal Plan: No Suicidal Intention: No Homicidal Ideation: No Homicidal Plan: No Homicidal Intention: No Insight: Fair Judgment: Impulsive Assessment & Plan Problem List: (1) Dementia ICD Codes: F03.90 - Unspecified dementia without behavioral disturbance Assessment & Plan: On psychiatric evaluation today the patient at the beginning irritable, oppositional, stating that he doesn't need a psychiatrist, but receptive to reassurance and verbal de-escalation techniques. The patient denies symptomatology of depression, anxiety, tigist or psychosis. The patient denies suicidal and homicidal ideation, visual and auditory hallucinations at this moment. At the moment of my evaluation even though the patient seems to be verbally hostile, no agitation, no aggressive behavior are observed. As per nurse in charge the patient has been behaviorally is stable. No delirium, no prominent paranoia, no delusions, no disorganized behavior or speech are evident at this moment. He does present was seems to be mild to moderate Alfonso. neurocognitive disorder. In a cognitive assessment, even though the patient refuses to cooperate to the and, partial disorientation, deficits in immediate recall and concentration are present. At this point there is no clear etiology of his alleged belligerent and aggressive behavior, but catheter structure, worsening dementia process and delirium due to underlying medical conditions have to be highly considered in the differential. I could not get any collateral information from his this morning, which is crucial in order to make a final determination regarding if the patient needs or he doesn't need psychiatric admission. We'll continue longitudinal observation or mood and behavior. Will add Namenda 10 mg to medication regimen in order to slow dementia process. If patient become agitated during this hospitalization, Haldol 2-5 mg IM stat can be prescribed. Avoiding as much is possible benzodiazepines,/narcotics/anticholinergic will help. Familiar faces around his bed, frequent sensory stimulation, frequent reorientation, appropriate lightening of the room are also measures that can help with behavior. Consult allison. Theo at will remain in place. I will follow-up. Assessment & Plan Estimated LOS: days Problem Qualifiers (1) Dementia: Fish Rapp MD May 27, 2017 09:30
--- NOTE | 2017-05-27 09:31 | MB ---
cc: NIA SLAUGHTER M.D. DATE OF CONSULTATION: 05/27/2017 REASON FOR CONSULTATION Evaluation of nonsustained V-tach. HISTORY OF PRESENT ILLNESS Saroj Sampson is a 82-year-old man brought in as a Venegas ACT for dementia and aggressive behavior towards his spouse. The patient has known coronary artery disease. He does not see a content creation manager in [place]. He says he had bypass surgery about 3-4 years ago in [place]. He is very vague on specifics. He says he gets chest pain occasionally when I asked him about it but nothing severe. Denies any significant shortness of breath. He does not sound very active. He has a background history of hypertension, hyperlipidemia. I asked him if he had a prior heart attack and he said yes but it was not a bad one. His EKG shows a left bundle-branch block. He was noted to have 11 beat run of V-tach at 10:21 p.m. last night at a rate of 200 but no symptoms apparently reported. PAST MEDICAL HISTORY Past medical history includes: 1. Hypertension. 2. Hyperlipidemia. 3. Coronary artery disease. 4. Dementia. 5. Bypass surgery. FAMILY HISTORY Family history is positive for heart disease. SOCIAL HISTORY Quit smoking 10 years ago. Quit alcohol 30 years ago. He was in the [employer] possibly during [place]. He is a retired chief electrician. He is . He has three children, all living in [place]. MEDICATIONS Home medications include: 1. Lisinopril. 2. Carvedilol. 3. Imdur. 4. Hydrochlorothiazide. 5. Omeprazole. 6. Aspirin. REVIEW OF SYSTEMS Review of systems otherwise noncontributory. PHYSICAL EXAMINATION GENERAL: Disheveled, alert white male, in no acute distress. He is disoriented to time, he is disoriented to person insofar as he could not recall who the President is. He was quite hypertensive on admission, he is still mildly elevated now. HEENT: Exam unremarkable. NECK: No JVD, no bruits. CHEST: Shows rales at the right base. CARDIAC: S1-S2, regular rate and rhythm. I do not hear an S3 or murmur. ABDOMEN: Soft, nontender. EXTREMITIES: Reveal no clubbing, cyanosis or edema. Pulses are intact. EKG Shows sinus rhythm with left bundle-branch block. TELEMETRY Telemetry at 10:21 p.m. last night showed 11 beat run of monomorphic VT at a rate of 200. LABORATORY DATA Troponins are negative x2. Hematocrit 48.7, creatinine is elevated 1.57. IMAGING STUDIES Chest x-ray showing mild basilar airspace disease. IMPRESSION Nonsustained run of V-tach asymptomatic, known coronary artery disease, sounds like he has angina but not unstable. He has significant degree of dementia for which conservative measures are recommended. RECOMMENDATIONS Change the IV amiodarone to p.o. Up his beta-yuliana to carvedilol 12.5 b.i.d.. Resume his TIFFANY inhibitor. Add Lasix 40 mg daily. Awaiting a 2-D Echo Doppler study. Further therapy to be determined. MD CLARICE Leon/RON /9:16 AM /9:22 AM
[2017-05-27] MEDS: MEMANTINE HCL 10 MG TAB PO SCH (10:09)
[2017-05-27] MEDS: LISINOPRIL 20 MG TAB PO SCH (10:10)
[2017-05-27 11:41] LABS: AUTOMATED NEUTROPHIL # 5.5 TH/MM3 (1.8-7.7); BASOPHIL # 0.1 TH/MM3 (0-0.2); BASOPHIL % 0.7 % (0.0-2.0); EOSINOPHIL # 0.2 TH/MM3 (0-0.4); EOSINOPHIL % 2.3 % (0.0-4.0); HEMATOCRIT 48.8 % (39.0-51.0); HEMO FLAGS DIFF FINAL; LYMPH % 14.3 % (9.0-44.0); LYMPHOCYTE # 1.1 TH/MM3 (1.0-4.8); MEAN CELL VOLUME 96.3 FL (80.0-100.0); MEAN CORPUSCULAR HEMOGLOBIN 33.1 PG (27.0-34.0); MEAN CORPUSCULAR HGB CONC 34.4 % (32.0-36.0); MONO % 12.4 % (0.0-8.0); NEUT % 70.3 % (16.0-70.0); PLATELET COUNT 155 TH/MM3 (150-450); RED BLOOD COUNT 5.06 MIL/MM3 (4.50-5.90); RED CELL DISTRIBUTION WIDTH 14.1 % (11.6-17.2); WHITE BLOOD COUNT 7.8 TH/MM3 (4.0-11.0)
[2017-05-27 12:03] LABS: ALT (GPT) 60 U/L (12-78); ANION GAP 10 MEQ/L (5-15); AST (GOT) 48 U/L (15-37); BICARBONATE 24.6 MEQ/L (21.0-32.0); BLOOD UREA NITROGEN 24 MG/DL (7-18); CHLORIDE 103 MEQ/L (98-107); GLOMERULAR FILTRATION RATE 59 ML/MIN (>89); POTASSIUM 3.7 MEQ/L (3.5-5.1); SODIUM (NA) 138 MEQ/L (136-145)
[2017-05-27 12:10] LABS: ALKALINE PHOSPHATASE 80 U/L (45-117); TOTAL BILIRUBIN ADULT 0.8 MG/DL (0.2-1.0)
[2017-05-27] MEDS: AMIODARONE 200 MG TAB PO SCH (17:46)
[2017-05-27] MEDS ORDERED: LISINOPRIL 10 MG TAB PO ONE (19:00)
[2017-05-27] MEDS: PRAVASTATIN SOD 40 MG TAB PO SCH (20:44)
[2017-05-27] MEDS: CARVEDILOL 12.5 MG TAB PO SCH (20:44)
[2017-05-27] MEDS: DONEPEZIL HCL 5 MG TAB PO SCH (20:44)
[2017-05-28] VITALS (32 sets, daily range): BP systolic 110–165; BP diastolic 59–81; PULSE 50–72; RESP 16–18; TEMP 97.5–98.5; O2SAT 93–99
[2017-05-28 05:56] LABS: MAGNESIUM 1.7 MG/DL (1.5-2.5); POTASSIUM 3.5 MEQ/L (3.5-5.1)
[2017-05-28] MEDS: ISOSORBIDE MONONITRATE 30 MG TAB PO SCH (06:10)
[2017-05-28] MEDS: SODIUM CHLOR 0.9% 1000 ML INJ 1,000 ML IV SCH (06:10)
--- NOTE | 2017-05-28 07:23 | HHI.PR ---
Subjective Remarks in no acute distress. denies chest pain or sob. had a short run of V-tac earlier. no other acute issues over night. d/w the RN at the bedside. Objective Vitals Vital Signs Date Time Temp Pulse Resp B/P (MAP) Pulse Ox O2 Delivery O2 Flow Rate FiO2 05/28/17 06:22 50 05/28/17 05:03 55 05/28/17 04:09 54 05/28/17 03:20 61 05/28/17 03:03 72 17 148/80 (102) 99 05/28/17 02:00 65 05/28/17 01:16 56 05/28/17 00:02 63 05/27/17 23:43 68 18 136/71 (92) 93 05/27/17 23:00 65 05/27/17 22:05 65 05/27/17 21:00 64 05/27/17 20:00 70 05/27/17 19:58 69 18 150/85 (106) 94 05/27/17 19:00 67 05/27/17 18:00 77 05/27/17 17:00 64 05/27/17 16:00 67 05/27/17 15:00 97.9 66 16 163/82 (109) 96 05/27/17 15:00 71 05/27/17 14:00 66 05/27/17 13:10 161/83 (109) 05/27/17 13:00 68 05/27/17 12:00 66 05/27/17 11:00 98.1 62 17 156/83 (107) 94 05/27/17 11:00 61 05/27/17 10:00 63 05/27/17 09:00 67 05/27/17 08:00 66 05/27/17 07:27 61 169/84 I/O 05/27/17 05/27/17 05/27/17 05/28/17 05/28/17 05/28/17 07:00 15:00 23:00 07:00 15:00 23:00 Intake Total 951 ml 2330 ml 1012 ml Output Total 200 ml 475 ml Balance 951 ml 2130 ml 537 ml Intake Oral 960 ml 240 ml IV Total 951 ml 1370 ml 772 ml Output Urine Total 200 ml 475 ml # Voids 1 Result Diagram: 05/27/17 1057 05/28/17 0430 Imaging Last Impressions Chest X-Ray 05/26/17 4312 Signed Impressions: Service Date/Time: Friday, May 26, 2017 22:30 - CONCLUSION: 1. Mild basilar airspace disease with trace pleural fluid. Evan Still MD Objective Remarks GENERAL: This is a well-nourished, well-developed patient, in no apparent distress. CARDIOVASCULAR: Regular rate and regular rhythm without murmurs, gallops, or rubs. RESPIRATORY: Clear to auscultation. Breath sounds equal bilaterally. No wheezes , rales, or rhonchi. GASTROINTESTINAL: Abdomen soft, non-tender, nondistended. Normal, active bowel sounds MUSCULOSKELETAL: Extremities without clubbing, cyanosis, or edema. NEURO: Alert & Oriented x4 to person, place, time, situation. Moves all ext x4 Medications and IVs Current Medications Amiodarone HCl 450 mg/Dextrose 250 ml @ 33.33 mls/ hr Q7H31M PRN IV Per Protocol Last administered on 05/27/17 07:27; Start 05/26/17 at 23:12; Stop 05/27/17 at 09:08; Status DC Sodium Chloride 1,000 ml @ 100 mls/hr Q10H IV Last administered on 05/28/17 06:10; Start 05/26/17 at 23:57 Sodium Chloride (NS Flush) 2 ml UNSCH PRN IV FLUSH FLUSH AFTER USING IV ACCESS ; Start 05/27/17 at 00:00 Sodium Chloride (NS Flush) 2 ml BID IV FLUSH Last administered on 05/27/17 20 :45; Start 05/27/17 at 09:00 Ondansetron HCl (Zofran Inj) 4 mg Q6H PRN IVP NAUSEA OR VOMITING; Start at 00:00 Acetaminophen (Tylenol) 650 mg Q6H PRN PO FEVER/PAIN SCALE 1 TO 2; Start 05/27 at 00:00 Senna/Docusate Sodium (Edith-Colace) 1 tab BID PO Last administered on 20:43; Start 05/27/17 at 09:00 Magnesium Hydroxide (Milk Of Magnesia Liq) 30 ml Q12H PRN PO Mild constipation ; Start 05/27/17 at 00:00 Sennosides (Senokot) 17.2 mg Q12H PRN PO Moderate constipation; Start at 00:00 Bisacodyl (Dulcolax Supp) 10 mg DAILY PRN RECTAL SEVERE CONSITIPATION; Start 05/27/17 at 00:00 Lactulose (Lactulose Liq) 30 ml DAILY PRN PO SEVERE CONSITIPATION; Start 05/27 at 00:00 Heparin Sodium (Porcine) (Heparin Inj) 5,000 units Q12HR SQ Last administered on 05/27/17 20:43; Start 05/27/17 at 09:00 Hydralazine HCl (Apresoline Inj) 10 mg ONCE ONCE IV PUSH Last administered on 05/27/17 04:03; Start 05/27/17 at 04:00; Stop 05/27/17 at 04:01; Status DC Metoprolol Tartrate (Lopressor) 25 mg ONCE ONCE PO Last administered on 05:26; Start 05/27/17 at 05:15; Stop 05/27/17 at 05:16; Status DC Aspirin (Aspirin Chew) 81 mg DAILY CHEW Last administered on 05/27/17 08:25; Start 05/27/17 at 09:00 Donepezil HCl (Aricept) 10 mg HS PO Last administered on 05/27/17 20:44; Start 05/27/17 at 21:00 Pantoprazole Sodium (Protonix) 40 mg DAILY PO Last administered on 05/27/17 08:25; Start 05/27/17 at 09:00 Pravastatin Sodium (Pravachol) 80 mg HS PO Last administered on 05/27/17 20: 44; Start 05/27/17 at 21:00 Enalaprilat (Vasotec Inj) 1.25 mg Q8H PRN IV PUSH SBP> OR = 180, DBP> OR = 100 Last administered on 05/27/17 18:06; Start 05/27/17 at 07:45 Carvedilol (Coreg) 6.25 mg BID PO Last administered on 05/27/17 08:25; Start 05/27/17 at 09:00; Stop 05/27/17 at 09:06; Status DC Memantine (Namenda) 10 mg DAILY PO Last administered on 05/27/17 10:09; Start 05/27/17 at 10:00 Carvedilol (Coreg) 12.5 mg BID PO Last administered on 05/27/17 20:44; Start 05/27/17 at 21:00 Lisinopril (Prinivil) 20 mg DAILY PO Last administered on 05/27/17 10:10; Start 05/27/17 at 10:00 Furosemide (Lasix) 40 mg DAILY PO ; Start 05/28/17 at 09:00 Amiodarone HCl (Cordarone) 200 mg BIDPC PO Last administered on 05/27/17 17: 46; Start 05/27/17 at 18:00 Isosorbide Mononitrate (Imdur) 30 mg DAILY@07 PO Last administered on 06:10; Start 05/28/17 at 07:00 Lisinopril (Prinivil) 10 mg NOW ONCE PO Last administered on 05/27/17 20:44 ; Start 05/27/17 at 19:00; Stop 05/27/17 at 19:01; Status DC A/P Problem List: (1) V tach ICD Code: I47.2 - Ventricular tachycardia Status: Acute (2) Dementia with aggressive behavior ICD Code: F03.91 - Unspecified dementia with behavioral disturbance Status: Acute (3) Renal insufficiency ICD Code: N28.9 - Disorder of kidney and ureter, unspecified (4) HTN (hypertension) ICD Code: I10 - Essential (primary) hypertension Assessment and Plan A/P 1. Vtach: cardiology consult appreciated; coreg was increased and started on po Amiodarone- echo pending. 2. Dementia: w/ Aggressive Behavior, brought in by Police under Venegas Act for being physically aggressive to . Consulted Psych; Namenda was added- psych following. 3. acute kidney injury; improved- stop IV fluid- 4. HTN: BP overall better controlled. continue corega and lisinopril- will monitor and adjust the regimen as needed. 5. DVT Prophylaxis: Heparin sq Discharge Planning dc planning within the next 24-48 hrs if stable and cleared by cardiology- pending psych recommendations. Portillo Anguiano MD May 28, 2017 07:23
[2017-05-28] MEDS: CARVEDILOL 12.5 MG TAB PO SCH ×2 (08:03→20:17)
[2017-05-28] MEDS: FUROSEMIDE 40 MG TAB PO SCH (08:03)
[2017-05-28] MEDS: PANTOPRAZOLE SOD 40 MG DELAYED RELEASE TAB PO SCH (08:03)
[2017-05-28] MEDS: MEMANTINE HCL 10 MG TAB PO SCH (08:04)
[2017-05-28] MEDS: AMIODARONE 200 MG TAB PO SCH ×2 (08:04→18:31)
[2017-05-28] MEDS: ASPIRIN 81 MG CHEW TAB CHEW SCH (08:04)
[2017-05-28] MEDS: HEPARIN SODIUM - SQ 10,000 UNITS/ML VIAL SQ SCH ×2 (08:04→20:17)
[2017-05-28] MEDS: LISINOPRIL 20 MG TAB PO SCH (08:04)
[2017-05-28] MEDS: DOCUSATE SODIUM 50 MG/SENNA 8.6 MG TAB PO SCH ×2 (08:04→20:17)
[2017-05-28] MEDS: SODIUM CHLORIDE 0.9% FLUSH 10 ML FLUSH IV FLUSH SCH ×2 (08:05→20:17)
[2017-05-28] MEDS: POTASSIUM CHLORIDE 20 MEQ CONTROLLED RELEASE TAB PO SCH (08:08)
--- NOTE | 2017-05-28 09:39 | HHI.PYPN ---
Subjective Remarks Patient was seen today for psychiatric reevaluation today. Chart was reviewed, case discussed with nurse in charge and also with Dr. Anguiano, who is planning to discharge the patient back home today if Venegas act is lifted. He was found sleeping, but easily arausable, he was calm , cooperative and in a good spirit. She reports that he feels much better today. Continues to be pleasantly confused, he is partially oriented in time and place. He denies depression, denies anxiety, denies suicidal and homicidal ideation, visual and auditory hallucinations. Collateral information, Ros Sampson, was obtained. She says that the patient is not normally an aggressive person. But, in the last week has been increasingly verbally hostile and sometimes even physical. She has been showing progressive symptoms of dementia, but still functional and able to take care of himself. She does not have any safety concern of the patient going back home once medically and psychiatrically cleared. Review of Systems Except as stated in HPI: all other systems reviewed are Neg Mental Status Examination Appearance: Appropriate Consciousness: Alert Orientation: Person, Place (partially) Motor Activity: Normal gait Speech: Unremarkable Language: Adequate Fund of Knowledge: Adequate Attention and Concentration: Adequate Memory: Impaired Mood: Appropriate, Irritable Affect: Appropriate, Irritable Thought Process & Associations: Intact Thought Content: Appropriate Hallucination Type: None Delusion Type: None Suicidal Ideation: No Suicidal Plan: No Suicidal Intention: No Homicidal Ideation: No Homicidal Plan: No Homicidal Intention: No Insight: Fair Judgment: Impulsive Results Labs Test 05/27/17 10:57 05/28/17 04:30 White Blood Count 7.8 TH/MM3 Red Blood Count 5.06 MIL/MM3 Hemoglobin 16.8 GM/DL Hematocrit 48.8 % Mean Corpuscular Volume 96.3 FL Mean Corpuscular Hemoglobin 33.1 PG Mean Corpuscular Hemoglobin Concent 34.4 % Red Cell Distribution Width 14.1 % Platelet Count 155 TH/MM3 Mean Platelet Volume 9.8 FL Neutrophils (%) (Auto) 70.3 % Lymphocytes (%) (Auto) 14.3 % Monocytes (%) (Auto) 12.4 % Eosinophils (%) (Auto) 2.3 % Basophils (%) (Auto) 0.7 % Neutrophils # (Auto) 5.5 TH/MM3 Lymphocytes # (Auto) 1.1 TH/MM3 Monocytes # (Auto) 1.0 TH/MM3 Eosinophils # (Auto) 0.2 TH/MM3 Basophils # (Auto) 0.1 TH/MM3 CBC Comment DIFF FINAL Differential Comment Blood Urea Nitrogen 24 MG/DL 21 MG/DL Creatinine 1.19 MG/DL 1.20 MG/DL Random Glucose 80 MG/DL 91 MG/DL Total Protein 7.7 GM/DL Albumin 3.5 GM/DL Calcium Level 8.7 MG/DL 8.3 MG/DL Alkaline Phosphatase 80 U/L Aspartate Amino Transf (AST/SGOT) 48 U/L Alanine Aminotransferase (ALT/SGPT) 60 U/L Total Bilirubin 0.8 MG/DL Sodium Level 138 MEQ/L 137 MEQ/L Potassium Level 3.7 MEQ/L 3.5 MEQ/L Chloride Level 103 MEQ/L 106 MEQ/L Carbon Dioxide Level 24.6 MEQ/L 24.0 MEQ/L Anion Gap 10 MEQ/L 7 MEQ/L Estimat Glomerular Filtration Rate 59 ML/MIN 58 ML/MIN Troponin I LESS THAN 0.02 NG/ML Magnesium Level 1.7 MG/DL Vitals/IOs Vital Signs Date Time Temp Pulse Resp B/P (MAP) Pulse Ox O2 Delivery O2 Flow Rate FiO2 05/28/17 08:00 50 05/28/17 07:16 98.5 16 149/70 (96) 94 05/27/17 03:17 Room Air Intake and Output 05/28/17 05/28/17 05/29/17 08:00 16:00 00:00 Intake Total 1132 ml Output Total 475 ml Balance 657 ml Assessment & Plan Problem List: (1) Dementia ICD Codes: F03.90 - Unspecified dementia without behavioral disturbance Assessment & Plan: Patient hasn't displayed any agitation or aggressive behavior during this hospitalization. He had not seen any indication for additional psychotropics at this moment. He has evident symptomatology of mild to moderate dementia. He does not meet criteria for involuntary psychiatric admission at this moment. Extensive psychoeducation provided to patient and also to his . Assessment & Plan Estimated LOS: days Justification for Cont. Inpt. Patient does not meet criteria for involuntary psychiatric admission. Venegas will be lifted. Problem Qualifiers (1) Dementia: Fish Rapp MD May 28, 2017 09:39
--- NOTE | 2017-05-28 14:14 | ECHRPT ---
Indication: CARDIOMYOPATHY CONCLUSIONS Normal left ventricular size. Wall thickness is measured at the upper limits of normal. The left ventricular systolic function is difficult to assess. Grossly, left ventricular function a ppears to be low normal with estimated ejection fraction of 50%. No definite wall motion abnormalities are ident ified. Trace aortic valve regurgitation. There is trace tricuspid valve regurgitation. The estimated pulmonary arterial pressure is 38 mmHg. BP: / HR: Rhythm: MEASUREMENTS (Male / Female) Normal Values Technical Quality:Good 2D ECHO LV Diastolic Diameter PLAX 4.2 cm 4.2 - 5.9 / 3.9 - 5.3 cm LV Systolic Diameter PLAX 3.8 cm IVS Diastolic Thickness 1.3 cm 0.6 - 1.0 / 0.6 - 0.9 cm LVPW Diastolic Thickness 0.7 cm 0.6 - 1.0 / 0.6 - 0.9 cm LV Relative Wall Thickness 0.5 RV Internal Dim ED PLAX 2.0 cm LA Systolic Diameter LX 4.2 cm 3.0 - 4.0 / 2.7 - 3.8 cm M-MODE Aortic Root Diameter MM 3.4 cm AV Cusp Separation MM 2.0 cm DOPPLER Mitral E Point Velocity 33.6 cm/s Mitral A Point Velocity 66.1 cm/s Mitral E to A Ratio 0.5 TR Peak Velocity 290.0 cm/s TR Peak Gradient 33.6 mmHg Right Atrial Pressure 5.0 mmHg Pulmonary Artery Systolic Pressu 38.6 mmHg Right Ventricular Systolic Press 38.6 mmHg FINDINGS LEFT VENTRICLE Normal left ventricular size. Wall thickness is measured at the upper limits of normal. The left ventricular systolic function is difficult to assess. Grossly, left ventricular function a ppears to be low normal with estimated ejection fraction of 50%. No definite wall motion abnormalities are ident ified. RIGHT VENTRICLE The right ventricle was not well visualized. Normal right ventricular size and systolic function. LEFT ATRIUM The left atrial size is normal. RIGHT ATRIUM The right atrial size is normal. ATRIAL SEPTUM Normal atrial septal thickness without atrial level shunting by limited color doppler interrogation. AORTA The aortic root and proximal ascending aorta are normal in size on limited imaging. MITRAL VALVE Structurally normal mitral valve. No mitral valve stenosis or regurgitation. AORTIC VALVE Trace aortic valve regurgitation. TRICUSPID VALVE There is trace tricuspid valve regurgitation. The estimated pulmonary arterial pressure is 38 mmHg. PULMONARY VALVE Trivial pulmonary valve regurgitation. VESSELS The inferior vena cava is normal in size. PERICARDIUM No pericardial effusion. Scooby H. Kash MD (Electronically Signed) Final Date:28 May 2017 14:13
[2017-05-28] MEDS: DONEPEZIL HCL 5 MG TAB PO SCH (20:17)
[2017-05-28] MEDS: PRAVASTATIN SOD 40 MG TAB PO SCH (20:17)
[2017-05-29] VITALS (9 sets, daily range): BP systolic 130–154; BP diastolic 73–80; PULSE 49–66; RESP 16; TEMP 97.3–97.7; O2SAT 94–96
[2017-05-29] MEDS: ISOSORBIDE MONONITRATE 30 MG TAB PO SCH (06:17)
--- NOTE | 2017-05-29 07:47 | HHI.PR ---
Subjective Remarks in no acute distress. denies chest pain, sob or dizziness. d/w the RN and no acute issues over night. Objective Vitals Vital Signs Date Time Temp Pulse Resp B/P (MAP) Pulse Ox O2 Delivery O2 Flow Rate FiO2 05/29/17 06:00 62 05/29/17 05:00 51 05/29/17 04:00 49 05/29/17 03:10 97.3 60 16 154/80 (104) 94 05/29/17 03:00 66 05/29/17 02:00 52 05/29/17 01:00 51 05/29/17 00:00 49 05/28/17 23:30 97.8 62 16 165/81 (109) 95 05/28/17 23:00 61 05/28/17 22:00 52 05/28/17 21:00 64 05/28/17 20:00 64 05/28/17 19:45 97.9 64 16 127/62 (83) 94 05/28/17 19:00 67 05/28/17 18:02 57 05/28/17 17:00 66 05/28/17 16:00 58 05/28/17 15:15 97.8 61 18 130/69 (89) 93 05/28/17 15:00 62 05/28/17 14:00 61 05/28/17 13:00 64 05/28/17 12:00 65 05/28/17 11:17 97.5 63 18 110/59 (76) 96 05/28/17 11:01 62 05/28/17 10:10 54 05/28/17 09:00 50 05/28/17 08:00 50 I/O 05/28/17 05/28/17 05/28/17 05/29/17 05/29/17 05/29/17 07:00 15:00 23:00 07:00 15:00 23:00 Intake Total 1012 ml 120 ml 400 ml 300 ml Output Total 475 ml 800 ml 400 ml Balance 537 ml 120 ml -400 ml -100 ml Intake Oral 240 ml 400 ml 300 ml IV Total 772 ml 120 ml Output Urine Total 475 ml 800 ml 400 ml # Bowel Movements 1 Result Diagram: 05/27/17 1057 05/28/17 0430 Imaging Last Impressions Chest X-Ray 05/26/172221 Signed Impressions: Service Date/Time: Friday, May 26, 2017 22:30 - CONCLUSION: 1. Mild basilar airspace disease with trace pleural fluid. Evan Still MD Objective Remarks GENERAL: This is a well-nourished, well-developed patient, in no apparent distress. CARDIOVASCULAR: Regular rate and regular rhythm without murmurs, gallops, or rubs. RESPIRATORY: Clear to auscultation. Breath sounds equal bilaterally. No wheezes , rales, or rhonchi. GASTROINTESTINAL: Abdomen soft, non-tender, nondistended. Normal, active bowel sounds MUSCULOSKELETAL: Extremities without clubbing, cyanosis, or edema. NEURO: Alert & Oriented x4 to person, place, time, situation. Moves all ext x4 Medications and IVs Current Medications Amiodarone HCl 450 mg/Dextrose 250 ml @ 33.33 mls/ hr Q7H31M PRN IV Per Protocol Last administered on 05/27/17 07:27; Start 05/26/17 at 23:12; Stop 05/27/17 at 09:08; Status DC Sodium Chloride 1,000 ml @ 100 mls/hr Q10H IV Last administered on 05/28/17 06:10; Start 05/26/17 at 23:57; Stop 05/28/17 at 07:20; Status DC Sodium Chloride (NS Flush) 2 ml UNSCH PRN IV FLUSH FLUSH AFTER USING IV ACCESS ; Start 05/27/17 at 00:00 Sodium Chloride (NS Flush) 2 ml BID IV FLUSH Last administered on 05/28/17 20 :17; Start 05/27/17 at 09:00 Ondansetron HCl (Zofran Inj) 4 mg Q6H PRN IVP NAUSEA OR VOMITING; Start at 00:00 Acetaminophen (Tylenol) 650 mg Q6H PRN PO FEVER/PAIN SCALE 1 TO 2; Start 05/27 at 00:00 Senna/Docusate Sodium (Edith-Colace) 1 tab BID PO Last administered on 20:17; Start 05/27/17 at 09:00 Magnesium Hydroxide (Milk Of Magnesia Liq) 30 ml Q12H PRN PO Mild constipation ; Start 05/27/17 at 00:00 Sennosides (Senokot) 17.2 mg Q12H PRN PO Moderate constipation; Start at 00:00 Bisacodyl (Dulcolax Supp) 10 mg DAILY PRN RECTAL SEVERE CONSITIPATION; Start 05/27/17 at 00:00 Lactulose (Lactulose Liq) 30 ml DAILY PRN PO SEVERE CONSITIPATION; Start 05/27 at 00:00 Heparin Sodium (Porcine) (Heparin Inj) 5,000 units Q12HR SQ Last administered on 05/28/17 20:17; Start 05/27/17 at 09:00 Hydralazine HCl (Apresoline Inj) 10 mg ONCE ONCE IV PUSH Last administered on 05/27/17 04:03; Start 05/27/17 at 04:00; Stop 05/27/17 at 04:01; Status DC Metoprolol Tartrate (Lopressor) 25 mg ONCE ONCE PO Last administered on 05:26; Start 05/27/17 at 05:15; Stop 05/27/17 at 05:16; Status DC Aspirin (Aspirin Chew) 81 mg DAILY CHEW Last administered on 05/28/17 08:04; Start 05/27/17 at 09:00 Donepezil HCl (Aricept) 10 mg HS PO Last administered on 05/28/17 20:17; Start 05/27/17 at 21:00 Pantoprazole Sodium (Protonix) 40 mg DAILY PO Last administered on 05/28/17 08:03; Start 05/27/17 at 09:00 Pravastatin Sodium (Pravachol) 80 mg HS PO Last administered on 05/28/17 20: 17; Start 05/27/17 at 21:00 Enalaprilat (Vasotec Inj) 1.25 mg Q8H PRN IV PUSH SBP> OR = 180, DBP> OR = 100 Last administered on 05/27/17 18:06; Start 05/27/17 at 07:45 Carvedilol (Coreg) 6.25 mg BID PO Last administered on 05/27/17 08:25; Start 05/27/17 at 09:00; Stop 05/27/17 at 09:06; Status DC Memantine (Namenda) 10 mg DAILY PO Last administered on 05/28/17 08:04; Start 05/27/17 at 10:00 Carvedilol (Coreg) 12.5 mg BID PO Last administered on 05/28/17 20:17; Start 05/27/17 at 21:00 Lisinopril (Prinivil) 20 mg DAILY PO Last administered on 05/28/17 08:04; Start 05/27/17 at 10:00 Furosemide (Lasix) 40 mg DAILY PO Last administered on 05/28/17 08:03; Start 05/28/17 at 09:00 Amiodarone HCl (Cordarone) 200 mg BIDPC PO Last administered on 05/28/17 18: 31; Start 05/27/17 at 18:00 Isosorbide Mononitrate (Imdur) 30 mg DAILY@07 PO Last administered on 06:17; Start 05/28/17 at 07:00 Lisinopril (Prinivil) 10 mg NOW ONCE PO Last administered on 05/27/17 20:44 ; Start 05/27/17 at 19:00; Stop 05/27/17 at 19:01; Status DC Potassium Chloride (KCl) 20 meq DAILY PO Last administered on 05/28/17 08:08 ; Start 05/28/17 at 09:00 A/P Problem List: (1) V tach ICD Code: I47.2 - Ventricular tachycardia Status: Acute (2) Dementia with aggressive behavior ICD Code: F03.91 - Unspecified dementia with behavioral disturbance Status: Acute (3) Renal insufficiency ICD Code: N28.9 - Disorder of kidney and ureter, unspecified (4) HTN (hypertension) ICD Code: I10 - Essential (primary) hypertension Assessment and Plan A/P 1. V-tach: cardiology consult appreciated; coreg was increased and started on po Amiodarone- echo with EF 50% and no regional wall motion abnormalities. 2. Dementia: w/ Aggressive Behavior, brought in by Police under Venegas Act for being physically aggressive to . Consulted Psych; Namenda was added and venegas act was lifted. 3. acute kidney injury; improved- 4. HTN: BP overall better controlled. continue corega and lisinopril- will monitor and adjust the regimen as needed. 5. DVT Prophylaxis: Heparin sq Discharge Planning dc home - likely later today after cleared by cardiology. cleared by psych for discharge. f/u ;pcp,cardiology. see med list. d/w the patient and RN. d/w Dr. Rapp. Portillo Anguiano MD May 29, 2017 07:47
[2017-05-29] MEDS ORDERED: CARV12.5 PO (07:49)
[2017-05-29] MEDS ORDERED: AMIO200T PO (07:49)
[2017-05-29] MEDS ORDERED: NAME10TA PO (07:49)
[2017-05-29] MEDS ORDERED: LISI-515 PO (07:49)
--- NOTE | 2017-05-29 07:50 | HHI.DS ---
Discharge Summary Admission Date May 27, 2017 at 00:09 Discharge Date: May 29, 2017 Admitting Diagnosis (1) V tach ICD Code: I47.2 - Ventricular tachycardia Diagnosis: Principal Status: Acute (2) Dementia with aggressive behavior ICD Code: F03.91 - Unspecified dementia with behavioral disturbance Diagnosis: Principal Status: Acute (3) Renal insufficiency ICD Code: N28.9 - Disorder of kidney and ureter, unspecified Diagnosis: Secondary (4) HTN (hypertension) ICD Code: I10 - Essential (primary) hypertension Diagnosis: Secondary Procedures none Brief History - From Admission This is an 82-year-old male with PMH of HTN, Hyperlipidemia, CAD and Dementia was brought to the ER by Police under Venegas Act being physically aggressive towards . Per , pt w/ worsening mental state in the last 3wks, tonight became aggressive. On arrival, BP 203/104, HR 75, O2 sat 96% on RA, Afebrile. CBC essentially unremarkable. Creatinine 1.57, no previous labs for comparison. Troponin negative. UA negative. Urine Drug Screen negative. Alcohol negative. CXR mild basilar airspace disease and trace pleural fluid. While in ER, patient noted to have an 11 beat run of V. tach, started on Amiodarone gtt. Pt currently without complaints. No chest pain, no SOB. CBC/BMP: 05/27/17 1057 05/28/17 0430 Significant Findings Laboratory Tests Test 05/26/17 21:15 05/26/17 21:20 05/26/17 21:26 05/26/17 22:30 Monocytes (%) (Auto) 11.4 % (0.0-8.0) Blood Urea Nitrogen 36 MG/DL (7-18) Creatinine 1.57 MG/DL (0.60-1.30) Total Protein 8.5 GM/DL (6.4-8.2) Aspartate Amino Transf (AST/SGOT) 45 U/L (15-37) Sodium Level 135 MEQ/L (136-145) Estimat Glomerular Filtration Rate 43 ML/MIN (>89) Creatine Kinase MB 5.0 NG/ML (0.5-3.6) Troponin I LESS THAN 0.02 NG/ML Urine Protein 100 mg/dL (NEG-TRACE) Urine Ketones TRACE mg/dL (NEG) Urine Occult Blood TRACE (NEG) Urine Mucus FEW /lpf (OCC) Prothrombin Time 11.7 SEC (9.8-11.6) Activated Partial Thromboplast Time 32.0 SEC (24.3-30.1) Test 05/27/17 01:35 05/27/17 10:57 05/28/17 04:30 Troponin I LESS THAN 0.02 NG/ML LESS THAN 0.02 NG/ML Neutrophils (%) (Auto) 70.3 % (16.0-70.0) Monocytes (%) (Auto) 12.4 % (0.0-8.0) Monocytes # (Auto) 1.0 TH/MM3 (0-0.9) Blood Urea Nitrogen 24 MG/DL (7-18) 21 MG/DL (7-18) Aspartate Amino Transf (AST/SGOT) 48 U/L (15-37) Estimat Glomerular Filtration Rate 59 ML/MIN (>89) 58 ML/MIN (>89) Calcium Level 8.3 MG/DL (8.5-10.1) Imaging Last Impressions Chest X-Ray 05/26/172 Signed Impressions: Service Date/Time: Friday, May 26, 2017 22:30 - CONCLUSION: 1. Mild basilar airspace disease with trace pleural fluid. Evan Still MD PE at Discharge GENERAL: This is a well-nourished, well-developed patient, in no apparent distress. CARDIOVASCULAR: Regular rate and regular rhythm without murmurs, gallops, or rubs. RESPIRATORY: Clear to auscultation. Breath sounds equal bilaterally. No wheezes , rales, or rhonchi. GASTROINTESTINAL: Abdomen soft, non-tender, nondistended. Normal, active bowel sounds MUSCULOSKELETAL: Extremities without clubbing, cyanosis, or edema. NEURO: Alert & Oriented x4 to person, place, time, situation. Moves all ext x4 Hospital Course 1. V-tach: cardiology consult appreciated; coreg was increased and started on po Amiodarone- echo with EF 50% and no regional wall motion abnormalities. 2. Dementia: w/ Aggressive Behavior, brought in by Police under Venegas Act for being physically aggressive to . Consulted Psych; Namenda was added and venegas act was lifted. 3. acute kidney injury; improved- 4. HTN: BP overall better controlled. continue corega and lisinopril- will monitor and adjust the regimen as needed. 5. DVT Prophylaxis: Heparin sq Pt Condition on Discharge: Fair Discharge Disposition: Discharge Home Discharge Time: <= 30 minutes Discharge Instructions DIET: Follow Instructions for: Heart Healthy Diet Activities you can perform: Regular-No Restrictions Follow up Referrals: Cardiology PCP Follow-up New Medications: Amiodarone (Amiodarone) 200 Mg Tab 200 MG PO BIDPC for v-tach for 30 Days, TAB 0 Refills Carvedilol (Coreg) 12.5 Mg Tab 12.5 MG PO BID for v-tach for 30 Days, #60 TAB 0 Refills Lisinopril (Lisinopril) 20 Mg Tab 20 MG PO DAILY for hypertension for 30 Days, #30 TAB 0 Refills Memantine (Namenda) 10 Mg Tab 10 MG PO DAILY for dementia for 30 Days, #30 TAB 0 Refills Continued Medications: Aspirin (Aspirin) 81 Mg Chew 81 MG CHEW DAILY, TAB 0 Refills Donepezil (Donepezil) 10 Mg Tab 10 MG PO HS for Dementia, #30 TAB 0 Refills Fish Oil-Cholecalciferol (Alexander-3 Fish Oil/Vitamin) 1,000-1,000 Mg Cap 1 CAP PO DAILY for Nutritional Supplement, CAP 0 Refills Fluticasone Propionate Inh (Armonair Respiclick Inh) 55 Mcg/Actuation Aer.pow.ba 50 MCG INH BID for Asthma Management, INH 0 Refills Gabapentin (Gabapentin) 300 Mg Cap 300 MG PO TID, #90 CAP 0 Refills Isosorbide Mononitrate ER (Isosorbide Mononitrate ER) 30 Mg Thiago 30 MG PO DAILY for Prevent Chest Pain, #30 TAB 0 Refills Loratadine (Claritin) 10 Mg Cap 10 MG PO DAILY for Allergy Management, CAP 0 Refills Meloxicam (Meloxicam) 15 Mg Tab 15 MG PO DAILY for Arthritis Pain, #30 TAB 0 Refills Omeprazole (Omeprazole) 40 Mg Cap 40 MG PO DAILY, #30 CAP 0 Refills Simvastatin (Simvastatin) 40 Mg Tab 40 MG PO HS for Cholesterol Management, #30 TAB 0 Refills Discontinued Medications: Carvedilol (Carvedilol) 6.25 Mg Tab 6.25 MG PO BID, #60 TAB 0 Refills Lisinopril/Hydrochlorothiazide (Lisinopril-Hctz 20-12.5 mg Tab) 20 Mg-12.5 Mg Tablet PO DAILY Portillo Anguiano MD May 29, 2017 07:50
[2017-05-29] MEDS: LISINOPRIL 20 MG TAB PO SCH (08:15)
[2017-05-29] MEDS: AMIODARONE 200 MG TAB PO SCH (08:15)
[2017-05-29] MEDS: ASPIRIN 81 MG CHEW TAB CHEW SCH (08:15)
[2017-05-29] MEDS: MEMANTINE HCL 10 MG TAB PO SCH (08:15)
[2017-05-29] MEDS: PANTOPRAZOLE SOD 40 MG DELAYED RELEASE TAB PO SCH (08:15)
[2017-05-29] MEDS: FUROSEMIDE 40 MG TAB PO SCH (08:15)
[2017-05-29] MEDS: CARVEDILOL 12.5 MG TAB PO SCH (08:16)
[2017-05-29] MEDS: POTASSIUM CHLORIDE 20 MEQ CONTROLLED RELEASE TAB PO SCH (08:16)
[2017-05-29] MEDS: SODIUM CHLORIDE 0.9% FLUSH 10 ML FLUSH IV FLUSH SCH (08:16)
[2017-05-29] MEDS: HEPARIN SODIUM - SQ 10,000 UNITS/ML VIAL SQ SCH (08:16)
== END 2017-05-29 13:30 | disposition home or self-care (01) | DRG 309 ==
LOC: NEPD 20:15 → NEDA 05-27 00:09 → HCPC 05-27 03:30
PROVIDERS: ADMIT Internal Medicine; ATTEND Internal Medicine
DX: I47.2 Ventricular tachycardia (principal); F03.91 Unspecified dementia, unspecified severity, with behavioral disturbance; N17.9 Acute kidney failure, unspecified; Z95.1 Presence of aortocoronary bypass graft; I25.10 Atherosclerotic heart disease of native coronary artery without angina pectoris; I10 Essential (primary) hypertension; E78.5 Hyperlipidemia, unspecified; I25.2 Old myocardial infarction; H91.90 Unspecified hearing loss, unspecified ear; Z87.891 Personal history of nicotine dependence
CPT/HCPCS: 71010; 80048; 80053; 80307; 81001; 82550; 82552; 83735; 84443; 84484; 85025; 85610; 85730; 93005; 93306; 96374; J0282; J0360; J1644; J7030; J7060